=== PATIENT | female | born 1935 | race Caucasian/White ===

== ENCOUNTER 2016-12-25 17:49 | Inpatient (IN) | payer OTHER ==
[~2016-12-25] VITALS: Ht 157.5 cm; Wt 83.5 kg
--- NOTE | ~2016-12-25 | H ---
[facility] [place] [address] HISTORY AND PHYSICAL Name: LISA MCKEON Room #: 312-P ADM IN M.R.#: [id number] Admission: 12/25/16 Attend Phys: Johana Faustin MD Discharge: Date of : 33 Report #: [id number] THIS REPORT FOR: //name// CC: Sue Faustin DICTATED BY: Belem GONSALVES ATTENDING PHYSICIAN: Johana Faustin M.D. PRIMARY CARE PHYSICIAN: Sue Navarro M.D. CHIEF COMPLAINT: Shortness of breath, dizziness and orthostasis. HISTORY OF PRESENT ILLNESS: The patient is an 81-year-old female who came into the ER with shortness of breath and dizziness that has started about 2 weeks ago. It is worse with any standing or movement. She is not dizzy when she is at rest. She says she has been feeling so poorly in the last week she really has not been getting out of bed much. She has been eating or drinking because her son has been helping her out at home in bringing her food. She denies any vertigo-like dizziness, but states she mostly just feels lightheaded every time she stands up. She saw her primary care physician in the office today, who has noted to have tachycardia, orthostatic hypotension and anemia. Apparently, this was new. She denies any black or bloody stools. Denies any recent nausea or vomiting, cough or congestion. She states despite not eating well, she has gained about 10 pounds, but denies any swelling. She was noted to be in atrial fibrillation in the ER. She denies any prior history of AFib. She does see Dr. Lindo with cardiology for her history of coronary artery disease. She has [address] She states that last week she was evaluated with a chest x-ray and an echocardiogram on December 22. That report was reviewed, as she had it with her in her own files. The echo showed an EF of 60% with moderate mitral regurgitation, moderate tricuspid regurgitation, mild increased right ventricular systolic pressure, mild aortic regurgitation and moderate pulmonary regurgitation. The diastolic function was unable to be evaluated. She has had a prior stress test in June of 2016, which showed a small area of non-transmural infarct in the distal anterior apical segment, with mild nely-infarction ischemia. She was given Lopressor in the ER for her heart rate of 110 and her heart rate continues to be in AFib, but it is now running at 80-90. PAST MEDICAL HISTORY: Chronic back pain, coronary artery disease, gallbladder cancer, hypertension, hypothyroidism and hyperlipidemia. PAST SURGICAL HISTORY: Coronary stent times 5, resection of a granuloma for TB, cholecystectomy, back surgery, bilateral total knee replacement and hysterectomy. [address] [address] HISTORY AND PHYSICAL Name: LISA MCKEON Room #: 312-P [facility] IN M.R.#: [id number] Admission: 12/25/16 Attend Phys: Johana Faustin MD Discharge: Date of : 33 Report #: [id number] ALLERGIES: DYE, causes itching and rash. HOME MEDICATIONS: Aspirin 81 mg at bedtime, Neurontin 200 mg b.i.d., simvastatin 20 mg at bedtime, Effient 10 mg at bedtime, levothyroxine 88 mcg daily, Percocet 10/325 one tab b.i.d., Prozac 10 mg daily, metoprolol 50 mg daily, omeprazole 20 mg at bedtime, Dulcolax 10 mg p.o. at bedtime, MiraLax 17 grams at bedtime, albuterol inhaler p.r.n., amlodipine 2.5 mg daily and Aleve PM at bedtime. SOCIAL HISTORY: The patient is a never smoker. Denies any alcohol or drug use. She normally ambulates independently and is very active and gets out and visits with friends often. She drinks to half cup of coffee per day. FAMILY HISTORY: Her mother had pancreatic cancer. Her father from an [place] at the age of 70. REVIEW OF SYSTEMS: Twelve-point review of systems was reviewed with the patient and otherwise negative, unless stated in the HPI. PHYSICAL EXAMINATION: GENERAL: The patient is an alert female, in no acute distress. VITAL SIGNS: Temperature is 36.9, heart rate 95, respirations 16, blood pressure is 120/78 and oxygen 98% on room air. HEENT: PERRLA. Sclerae are nonicteric. Oral mucosa is pink and moist. NECK: Supple. No JVD noted. CARDIAC: Heart tones are irregular, but no murmurs, rubs or gallops. RESPIRATORY: Breath sounds are clear bilaterally. She is diminished in the left lower lobe. Breathing is nonlabored. ABDOMEN: Soft, round, nontender and nondistended, with positive bowel sounds. VASCULAR: Trace bilateral lower extremity edema. Pedal pulses are 2+. NEUROLOGIC: The patient is alert and oriented times 3. Speech is clear. She is answering questions appropriately and following commands. No focal neuro deficits noted. LABS AND DIAGNOSTICS: WBC is 12.3, hemoglobin 9.1 and platelets 301,000. Sodium 139, potassium 3.3, BUN 29, creatinine 14 and glucose 111. INR is 1.1. Troponins negative. EKG shows an atrial fibrillation, rate of 107. Chest x-ray showed a small left pleural effusion with minor basilar atelectasis versus infiltrates. ASSESSMENT AND PLAN: 1. New-onset atrial fibrillation with rapid ventricular response. This is likely why she has been appearing so poorly lately. She was given Lopressor in the ER and now is more rate controlled. We will continue with metoprolol b.i.d. Cardiology is consulted. Echo was requested per cardiology, but she just had one done last week and that was reviewed. Her EF is normal, but they were [facility] [address] [place] [address] HISTORY AND PHYSICAL Name: LISA MCKEON Room #: 312-P ADM IN [facility].#: [id number] Admission: 12/25/16 Attend Phys: Johana Faustin MD Discharge: Date of : 33 Report #: [id number] unable to evaluate for diastolic dysfunction. She is not on any anticoagulation, but was given a dose of therapeutic Lovenox in the ER. We will check TSH level. Continue to monitor on telemetry. 2. Dyspnea, likely due to atrial fibrillation and anemia. We will continue with breathing treatments p.r.n. She does have possible underlying pneumonia as well with small pleural effusion. So, we will continue antibiotics that were started in the ER. 3. Mild acute kidney injury. We will give gentle fluids. 4. Possible pneumonia. The patient is afebrile, but does have mild leukocytosis. We will continue antibiotics. 5. Hypothyroidism. Check TSH level, continue Synthroid. 6. Hypokalemia. This is being replaced. Repeat labs. 7. History of coronary artery disease with prior stents. Troponin is negative and she is on Effient daily. 8. Urinary tract infection. Continue with Rocephin. Follow urine culture. 9. Anemia. Last known hemoglobin was 12.0 in March 2016. We will check an iron level and hemoccult stools. 10. Deep vein thrombosis prophylaxis. Start Lovenox. We will continue to follow the patient closely throughout the hospitalization and make changes based on clinical status. By: 0837 1030 Johana Faustin MD /nt
--- NOTE | ~2016-12-25 | EKG ---
[address] [address] ELECTROCARDIOGRAM REPORT Name: LINDALISA Room #: 312-P ADM IN M.R.#: [id number] Admission: 12/25/16 Attend Phys: Johana Faustin MD Discharge: Date of : 33 Report #: [id number] THIS REPORT FOR: //name// [facility] ED Test Date: 2016-12-25 Test Time: 18:13:55 Pat Name: LISA MCKEON Department: Room: [facility] Gender: F Manager Rail: ALISSON : 1935 Requested By: Sujata Rivero Order Number: [id number] MD: Zeferino Neri Measurements Intervals [place] Rate: 107 P: NC: QRS: -7 QRSD: 96 T: 59 QT: 354 QTc: 473 Interpretive Statements Atrial fibrillation Low voltage, precordial leads Electronically Signed On 12-29-2016 12:41:50 CDT by Zeferino Neri [email or web address] <ELECTRONICALLY SIGNED> By: Zeferino Neri MD 12/29/16 1241 1813 1813 Zeferino Neri MD /MARILUZ
[~2016-12-25 17:49] MED LIST: ALEVE PM CAPLE1 EACH; ALLEGRA ALLERGY60 MG PO; ASPIRIN EC81 M1 PO; BENADRYL25 MG PO; DULCOLAX5 MG PO; EFFIENT10 MG PO; ESTRACE1 MG PO; GABAPENTIN100 MG PO; HYDROCHLOROTH12.5 M1 PO; KLOR-CON 1010 MEQ PO; LEVOTHYROXIN0.088 MG PO; MIRALAX17 GM PO; NITROSTAT0.4 MG SL; NORVASC2.5 MG PO; PERCOCET 10-321 EACH PO; PREDNISONE 20 M20 M1 PO; PRILOSEC20 MG PO; PROAIR HFA8.5 GM INH; PROZAC10 MG PO; REGLAN 10 MG TA10 MG PO; ROXICET 5-3251 EACH PO; SIMVASTATIN20 MG PO; SYNTHROID100 MCG PO; TOPROL XL50 MG PO; ZESTORETIC 20-1 EAC2 PO
[2016-12-25 17:51] VITALS: BP 120/78
[2016-12-25 18:23] LABS: ABSOLUTE NEUTROPHILS 9.7 thou/uL (1.4-8.2); BASOPHILS 0.3 % (0.0-2.0); EOSINOPHILS 0.1 % (0.0-3.0); HEMATOCRIT 29.5 % (37.0-47.0); HEMOGLOBIN 9.1 gm/dL (12.0-15.0); LYMPHOCYTES 9.6 % (24.0-44.0); MCH 24.1 pg (26.0-34.0); MCHC 30.8 g/dL (28.0-37.0); MCV 78.3 fL (80.0-100.0); MONOCYTES 11.5 % (1.0-8.0); PLATELET COUNT 301 thou/uL (150-400); POLYS 78.5 % (36.0-66.0); RBC 3.77 mil/uL (4.20-5.00); RDW 18.4 % (10.5-14.5); WBC 12.3 thou/uL (4.0-11.0)
[2016-12-25 18:24] LABS: MANUAL DIFF NO
[2016-12-25 18:31] LABS: ANION GAP 13 mmol/L (7-16); BUN 29 mg/dL (7-18); CALCIUM 8.9 mg/dL (8.5-10.1); CHLORIDE 103 mmol/L (98-107); CO2 23 mmol/L (21-32); CREATININE 1.4 mg/dL (0.6-1.3); GLUCOSE 111 mg/dL (70-99); POTASSIUM 3.3 mmol/L (3.5-5.1); SODIUM 139 mmol/L (136-145)
[2016-12-25 18:37] LABS: APTT 26.8 Seconds (24.5-32.8); INR 1.1; PROTIME 11.6 Seconds (9.3-11.4)
[2016-12-25 18:39] LABS: TROPONIN-I < 0.04 ng/mL (<0.04-0.07)
[2016-12-25 20:37] VITALS: BP 156/92
[2016-12-25 21:16] VITALS: BP 123/77
[2016-12-25] MEDS ORDERED: XANAX 0.25 MG0.25 MG PO (21:42)
[2016-12-25] MEDS ORDERED: EFFIENT10 MG PO (21:43)
[2016-12-25 22:24] LABS: URINE BILIRUBIN NEGATIVE (Negative); URINE BLOOD 2+ (Negative); URINE COLOR YELLOW; URINE GLUCOSE-RANDOM* NEGATIVE (Negative); URINE KETONES NEGATIVE (Negative); URINE NITRITE POSITIVE (Negative); URINE PROTEIN (DIPSTICK) 2+ (Negative); URINE SPECIFIC GRAVITY 1.015 (1.003-1.035)
[2016-12-25 22:31] LABS: CASTS None Seen /LPF (None Seen); CRYSTALS None Seen /LPF (None Seen); SQUAMOUS 0-3 Few /LPF (0-3); URINE RBC 3-10 Few /HPF (0-2); URINE WBC >25 Many /HPF (0-5)
[2016-12-25 22:33] LABS: MAGNESIUM 1.9 mg/dL (1.8-2.4)
[2016-12-26 00:03] VITALS: BP 137/78
[2016-12-26 00:17] LABS: % SATURATION 3 % (20-39); IRON 10 ug/dL (50-170); TIBC 335 ug/dL (250-450); UIBC 325 ug/dL
[2016-12-26 03:57] VITALS: BP 102/63
[2016-12-26 05:46] LABS: CALCIUM 8.3 mg/dL (8.5-10.1); CREATININE 1.2 mg/dL (0.6-1.3); POTASSIUM 3.6 mmol/L (3.5-5.1)
[2016-12-26 08:42] VITALS: BP 139/75
[2016-12-26 12:23] VITALS: BP 125/79
[2016-12-26 15:54] VITALS: BP 131/74
[2016-12-26 20:00] VITALS: BP 124/81
[2016-12-27] VITALS (8 sets, daily range): BP systolic 100–155; BP diastolic 56–96
[2016-12-27 06:36] LABS: HEMATOCRIT 26.2 % (37.0-47.0); HEMOGLOBIN 8.2 gm/dL (12.0-15.0); MCH 24.1 pg (26.0-34.0); MCHC 31.1 g/dL (28.0-37.0); MCV 77.6 fL (80.0-100.0); RBC 3.38 mil/uL (4.20-5.00); RDW 18.2 % (10.5-14.5); WBC 8.5 thou/uL (4.0-11.0)
[2016-12-27 06:49] LABS: CALCIUM 8.5 mg/dL (8.5-10.1)
[2016-12-27 07:02] LABS: ALBUMIN 2.3 g/dL (3.4-5.0); DIRECT BILIRUBIN 0.2 mg/dL (<0.1-0.3); TOTAL BILIRUBIN 0.3 mg/dL (<0.1-1.0); TOTAL PROTEIN 5.4 g/dL (6.4-8.2)
[2016-12-27 07:29] LABS: FOLIC ACID 16.2 ng/mL (8.6-58.9)
[2016-12-28 03:18] VITALS: BP 111/71
[2016-12-28 05:34] LABS: HEMATOCRIT 28.2 % (37.0-47.0)
[2016-12-28 07:48] VITALS: BP 122/76
[2016-12-28 10:09] VITALS: BP 106/63; BP 119/58; BP 119/69
[2016-12-28 11:05] VITALS: BP 110/65
[2016-12-28] MEDS ORDERED: ELIQUIS5 MG PO (11:14)
[2016-12-28] MEDS ORDERED: PROTONIX40 M1 PO (11:14)
[2016-12-28] MEDS ORDERED: METOPROLOL SUCC50 MG PO (11:14)
[2016-12-28] MEDS ORDERED: CIPRO250 M1 PO (11:14)
[2016-12-28] MEDS ORDERED: METOPROLOL SUCC25 M1 PO (11:14)
[2016-12-28 15:11] VITALS: BP 119/77
[2016-12-28 19:08] VITALS: BP 130/75
[2016-12-29 03:45] VITALS: BP 127/74
[2016-12-29 08:25] VITALS: BP 138/90
[2016-12-29 12:58] VITALS: BP 115/68
[2016-12-29] MEDS ORDERED: XANAX 0.25 MG0.25 MG PO (16:02)
[2016-12-29] MEDS ORDERED: PERCOCET 10-321 EACH PO (16:02)
[2016-12-29 17:23] VITALS: BP 137/80
== END 2016-12-29 17:40 | DRG 309 ==
LOC: ER 17:49 → EROBS 18:56 → 3N 18:56
PROVIDERS: Emergency Medicine; Internal Medicine Gastroenterology; Nurse Practitioner Acute Care; Nurse Practitioner Adult Health; Nurse Practitioner Gerontology
DX: I48.91 Unspecified atrial fibrillation (principal); N17.9 Acute kidney failure, unspecified; N39.0 Urinary tract infection, site not specified; I25.10 Atherosclerotic heart disease of native coronary artery without angina pectoris; E03.9 Hypothyroidism, unspecified; E87.6 Hypokalemia; N20.0 Calculus of kidney; I50.9 Heart failure, unspecified; I11.0 Hypertensive heart disease with heart failure; S67.21XA Crushing injury of right hand, initial encounter; D50.9 Iron deficiency anemia, unspecified; G31.89 Other specified degenerative diseases of nervous system; Z96.653 Presence of artificial knee joint, bilateral; I95.1 Orthostatic hypotension; G89.29 Other chronic pain; M54.9 Dorsalgia, unspecified; Z95.5 Presence of coronary angioplasty implant and graft; Z80.0 Family history of malignant neoplasm of digestive organs; Z90.710 Acquired absence of both cervix and uterus; Z91.041 Radiographic dye allergy status; Z85.89 Personal history of malignant neoplasm of other organs and systems; Z82.49 Family history of ischemic heart disease and other diseases of the circulatory system; Z79.82 Long term (current) use of aspirin; Z79.899 Other long term (current) drug therapy
CPT/HCPCS: 10096

== ENCOUNTER 2017-01-30 12:03 | Observation (INO) | payer OTHER ==
--- NOTE | ~2017-01-30 | H ---
[facility] [address] [address] HISTORY AND PHYSICAL Name: LISA MCKEON Room #: 211-P [facility] IN M.R.#: [id number] Admission: 01/30/17 Attend Phys: Tuan Lindo Discharge: 01/31/17 Date of : 33 Report #: [id number] THIS REPORT FOR: //name// For History and Physical, please see office documentation/handwritten note in the patient's medical record. <ELECTRONICALLY SIGNED> By: Tuan Lindo MD 02/02/17 1343 1220 Tuan Lindo MD /
[~2017-01-30 12:03] MED LIST changes: +CIPRO250 M1 PO; +ELIQUIS5 MG PO; +METOPROLOL SUCC25 M1 PO; +METOPROLOL SUCC50 MG PO; +PROTONIX40 M1 PO; +XANAX 0.25 MG0.25 MG PO
[2017-01-30] MEDS ORDERED: XANAX 0.25 MG0.25 MG (13:18)
[2017-01-30 15:52] VITALS: BP 130/83
[2017-01-30 20:20] VITALS: BP 113/69
[2017-01-31] VITALS (8 sets, daily range): BP systolic 99–125; BP diastolic 53–74
[2017-01-31] MEDS ORDERED: DIPHENHIST25 M1 PO (18:28)
[2017-01-31] MEDS ORDERED: ACETAMINOPHEN325 M1 PO (18:28)
[2017-01-31] MEDS ORDERED: METOPROLOL SUCC50 MG PO (18:29)
[2017-01-31] MEDS ORDERED: ELIQUIS5 MG PO (18:29)
[2017-01-31] MEDS ORDERED: PACERONE 200 M200 M1 PO ×3 (18:43→18:46)
== END 2017-01-31 19:32 | disposition home or self-care (01) ==
LOC: 2N 12:03
PROC: 5A2204Z Restoration of Cardiac Rhythm, Single (ICD-10-PCS; principal; 2017-01-30)
DX: I48.91 Unspecified atrial fibrillation (principal); I10 Essential (primary) hypertension; E78.00 Pure hypercholesterolemia, unspecified; E03.9 Hypothyroidism, unspecified; I25.10 Atherosclerotic heart disease of native coronary artery without angina pectoris; E78.5 Hyperlipidemia, unspecified; M47.9 Spondylosis, unspecified; Z96.653 Presence of artificial knee joint, bilateral; Z90.710 Acquired absence of both cervix and uterus; Z95.5 Presence of coronary angioplasty implant and graft
CPT/HCPCS: 10081

== ENCOUNTER 2018-10-13 15:07 | Inpatient (IN) | payer OTHER ==
[~2018-10-13] VITALS: Ht 152.4 cm; Wt 78.7 kg
--- NOTE | ~2018-10-13 | H ---
[facility] [place] [address] HISTORY AND PHYSICAL Name: LISA MCKEON Room #: 170-1 ADM IN M.R.#: [id number] Admission: 10/13/18 Attend Phys: Ryan Rogers MD Discharge: Date of : 33 Report #: [id number] THIS REPORT FOR: //name// CC: Ryan Navarro DATE OF SERVICE: 10/13/2018 REASON FOR PRESENTATION: Dizziness. HISTORY OF PRESENT ILLNESS: An 82-year-old with known past medical history of atrial fibrillation, coronary artery disease, post stent, hypertension, hypothyroidism. The patient lives by herself. Her sons and daughter check on her. One of her sons was visiting with her today to try to take her to a salon for a haircut. The patient collapsed all of a sudden between his hands. She denies any chest pain. She did have some episode of dizziness in the last few days. She also reported some shortness of breath. No fever or chills. No recent URI. She had some constipation, but no nausea or vomiting. She denies any weakness in any part of her body. No facial numbness. No tingling. No hematochezia or melena. She denies any urinary symptoms. She has been taking amiodarone and metoprolol. When the patient presented to the Emergency Room, she was hypotensive and in extreme bradycardia. She denies complete syncope. No head trauma. PAST MEDICAL HISTORY: Extensive and includes the followin. AFib. 2. Hypertension. 3. Hypothyroidism. 4. Anemia. 5. Coronary artery disease. 6. Nephrolithiasis. 7. Hiatal hernia. 8. Colon polyps. 9. Mild aortic and tricuspid regurgitation. 10. History of gallbladder cancer, post cholecystectomy. 11. Axillary and mediastinal lymphadenopathy. 12. Multiple coronary artery stents. 13. Remote history of granuloma resection. 14. Back surgery. 15. Hysterectomy. 16. Fifth finger surgery on the right hand. 17. Bilateral knee replacements. FAMILY HISTORY: Her father had ND. SOCIAL HISTORY: She lives by herself. No drug or alcohol abuse. [facility] [address] [place] [address] HISTORY AND PHYSICAL Name: LISA MCKEON Shelly Room #: 170-1 [facility] IN [facility].#: [id number] Admission: 10/13/18 Attend Phys: Ryan Rogers MD Discharge: Date of : 33 Report #: [id number] MEDICATIONS: 1. Eliquis. 2. Amiodarone. 3. Metoprolol. 4. Amlodipine. 5. Gabapentin. 6. Levothyroxine. 7. Simvastatin. REVIEW OF SYSTEMS: GENERAL: Significant for weakness. Dizziness present along with lightheadedness. CARDIOVASCULAR: Shortness of breath. PULMONARY: No cough or hemoptysis. GASTROINTESTINAL: Constipation due to narcotics. MUSCULOSKELETAL: Back pain requiring injections. HEMATOLOGICAL: She has been told that she looks pale. She also reported dizziness. NEUROLOGICAL: As per the history of present illness. PHYSICAL EXAMINATION: GENERAL: Pleasant, alert, oriented. VITAL SIGNS: Temperature 36.9, pulse rate 48. HEAD AND NECK: No jugular venous distention. CHEST: Decreased air entry bilaterally. CARDIOVASCULAR: No rub detected, irregular. ABDOMEN: Soft, nontender with no hepatosplenomegaly. EXTREMITIES: Lower extremities, no edema. NEUROLOGICAL: She is alert, oriented. No cranial nerve deficits. SKIN: No rashes or ulcerations. LABORATORY DATA: Reviewed. Hemoglobin is 9.5, white blood cell count 8.9. Chemistry revealed sodium of 141, a creatinine of 1.5 and AST of 51. UA with +1 protein, +3 blood, positive nitrite with white blood cell and red blood cells present. ASSESSMENT, IMPRESSION AND PLAN: 1. Symptomatic bradycardia. 2. Hypertension. 3. Anemia. 4. Chronic kidney disease. 5. Atrial fibrillation. 6. Elevated liver function test. 7. Coronary artery disease. 8. Degenerative joint disease. [address] [address] HISTORY AND PHYSICAL Name: LISA MCKEON Room #: 170-1 ADM IN [facility].#: [id number] Admission: 10/13/18 Attend Phys: Ryan Rogers MD Discharge: Date of : 33 Report #: [id number] 9. History of gallbladder cancer, post cholecystectomy. 10. The patient's symptoms seem to be all related to her bradycardia and hypotension related to amiodarone and beta vickie intake. We will hold both. 11. Given her anemia, I will hold her anticoagulant. 12. Send appropriate anemia workup. 13. Obtain a chest x-ray. 14. Continue with the IV fluid. 15. Obtain a urine culture and initiate on antibiotic. 16. No blood thinners for now. 17. Gastrointestinal prophylaxis. 18. Cardiac consultation. 19. Hold her blood pressure medications given her hypotension. 20. Check thyroid studies. By: 1748 1814 Ryan Rogers MD /nt
[~2018-10-13 15:07] MED LIST changes: +ACETAMINOPHEN325 M1 PO; +DIPHENHIST25 M1 PO; +PACERONE 200 M200 M1 PO; +XANAX 0.25 MG0.25 MG
[2018-10-13 15:08] VITALS: BP 116/46
[2018-10-13 16:00] LABS: ABSOLUTE NEUTROPHILS 6.7 thou/uL (1.4-8.2); BASOPHILS 0.8 % (0.0-2.0); EOSINOPHILS 0.6 % (0.0-3.0); HEMATOCRIT 29.5 % (37.0-47.0); HEMOGLOBIN 9.5 gm/dL (12.0-15.0); LYMPHOCYTES 14.3 % (24.0-44.0); MCH 27.7 pg (26.0-34.0); MCHC 32.2 g/dL (28.0-37.0); MCV 86.1 fL (80.0-100.0); MONOCYTES 8.7 % (1.0-8.0); PLATELET COUNT 315 thou/uL (150-400); POLYS 75.6 % (36.0-66.0); RBC 3.43 mil/uL (4.20-5.00); RDW 18.6 % (10.5-14.5); WBC 8.9 thou/uL (4.0-11.0)
[2018-10-13] MEDS ORDERED: NORVASC5 MG PO (16:15)
[2018-10-13 16:17] LABS: ANION GAP 10 mmol/L (7-16); BUN 17 mg/dL (7-18); CALCIUM 8.5 mg/dL (8.5-10.1); CHLORIDE 104 mmol/L (98-107); CO2 27 mmol/L (21-32); CREATININE 1.5 mg/dL (0.6-1.0); GLUCOSE 104 mg/dL (74-106); POTASSIUM 3.5 mmol/L (3.5-5.1); SODIUM 141 mmol/L (136-145)
[2018-10-13 16:22] LABS: SGOT 51 U/L (15-37); SGPT 23 U/L (30-65); TOTAL BILIRUBIN 0.5 mg/dL (<0.1-1.0); TOTAL PROTEIN 6.9 g/dL (6.4-8.2); TROPONIN-I <0.06 ng/mL (<0.06)
[2018-10-13 16:53] LABS: HYPOCHROMASIA 1+; MACROCYTES 1+; MICROCYTES 2+
[2018-10-13 16:57] LABS: URINE BILIRUBIN NEGATIVE (Negative); URINE BLOOD 3+ (Negative); URINE CLARITY CLEAR; URINE COLOR YELLOW; URINE GLUCOSE-RANDOM* NEGATIVE (Negative); URINE KETONES NEGATIVE (Negative); URINE LEUKOCYTES NEGATIVE (Negative); URINE NITRITE POSITIVE (Negative); URINE PROTEIN (DIPSTICK) 1+ (Negative); URINE SPECIFIC GRAVITY 1.025 (1.005-1.035); URINE UROBILINOGEN 0.2 E.U./dl (0.2-1.0)
[2018-10-13 17:05] LABS: SQUAMOUS 0-3 Few /LPF (0-3); URINE WBC 6-15 Few /HPF (0-5)
[2018-10-13 17:06] LABS: BACTERIA >30 Many /HPF (None Seen); CRYSTALS None Seen /LPF (None Seen); HYALINE CASTS 0-3 Few /LPF (None Seen); MUCUS 0-3 Light strn/LPF (None Seen); URINE RBC >20 Many /HPF (0-2)
[2018-10-13 17:35] VITALS: BP 144/54
[2018-10-13 21:14] VITALS: BP 147/77
[2018-10-13 21:40] VITALS: BP 178/70
--- NOTE | 2018-10-13 22:12 | EKG ---
[place] [address] [facility] [place] [address] ELECTROCARDIOGRAM REPORT Name: LINDALISA Room #: 461-P ADM IN M.R.#: [id number] Admission: 10/13/18 Attend Phys: Ryan Rogers MD Discharge: Date of : 33 Report #: [id number] THIS REPORT FOR: //name// [facility] ED Test Date: 2018-10-13 Test Time: 15:48:04 Pat Name: LISA MCKEON Department: Room: 461 Gender: F Global Creative Chairman: as : 1935 Requested By: Chinyere Newby Order Number: [id number] MD: Zeferino Neri Measurements Intervals [place] Rate: 50 P: [place]: QRS: -77 QRSD: 108 T: 44 QT: 506 QTc: 462 Interpretive Statements Sinus bradycardia LAD, consider left anterior fascicular block Low voltage, extremity and precordial leads Electronically Signed On 10-13-2018 22:12:12 WILDLAND FIREFIGHTER by Zeferino Neri [email or web address] <ELECTRONICALLY SIGNED> By: Zeferino Neri MD 10/13/18 2212 D: 01/1547 154 Zeferino Neri MD /MARILUZ
[2018-10-14 04:36] VITALS: BP 131/61
[2018-10-14 05:50] LABS: HEMATOCRIT 26.4 % (37.0-47.0); HEMOGLOBIN 8.4 gm/dL (12.0-15.0); MCH 26.9 pg (26.0-34.0); MCHC 31.8 g/dL (28.0-37.0); MCV 84.6 fL (80.0-100.0); RBC 3.12 mil/uL (4.20-5.00); RDW 18.5 % (10.5-14.5); WBC 7.3 thou/uL (4.0-11.0)
[2018-10-14 06:19] LABS: ALBUMIN 2.6 g/dL (3.4-5.0); CALCIUM 8.2 mg/dL (8.5-10.1); CREATININE 1.2 mg/dL (0.6-1.0); POTASSIUM 3.3 mmol/L (3.5-5.1); TOTAL BILIRUBIN 0.3 mg/dL (<0.1-1.0); TOTAL PROTEIN 6.2 g/dL (6.4-8.2)
[2018-10-14 06:23] LABS: % SATURATION 5 % (20-39); IRON 15 ug/dL (50-170); TIBC 321 ug/dL (250-450)
[2018-10-14 06:24] LABS: TSH 4.469 uIU/mL (0.358-3.740)
[2018-10-14 08:00] VITALS: BP 130/56
--- NOTE | 2018-10-14 08:40 | EKG ---
[address] [place] [address] ELECTROCARDIOGRAM REPORT Name: LISA MCKEON Room #: 461-P ADM IN M.R.#: [id number] Admission: 10/13/18 Attend Phys: Ryan Rogers MD Discharge: Date of : 33 Report #: [id number] THIS REPORT FOR: //name// [facility] Test Date: 2018-10-14 Test Time: 03:44:46 Pat Name: LISA MCKEON Department: Room: 461 Gender: F Enrollment Representative: [id number] : 1935 Requested By: Chinyere Newby Order Number: [id number] MD: Zeferino Neri Measurements Intervals [place] Rate: 54 P: SD: QRS: -25 QRSD: 105 T: 46 QT: 487 QTc: 462 Interpretive Statements Normal sinus rhythm Borderline left axis deviation Low voltage, extremity leads Compared to ECG 10/13/2018 15:48:04 Electronically Signed On 10-14-2018 8:40:14 COACH WIRER by Zeferino Neri [email or web address] <ELECTRONICALLY SIGNED> By: Zeferino Neri MD 10/14/18 0840 0344 0344 Zeferino Neri MD /MARILUZ
[2018-10-14 10:37] LABS: ABSOLUTE RETIC COUNT 0.0503 10^6/uL; OBSERVED RETIC COUNT 1.57 % (0.6-2.6)
[2018-10-14 11:09] LABS: IgA 427 mg/dL (64-422); IgG 747 mg/dL (700-1600); IgM 50 mg/dL (26-217)
--- NOTE | 2018-10-14 13:01 | 2DMMODE ---
[facility] [address] [place] [address] 2 D/M-MODE ECHOCARDIOGRAM Name: LISA MCKEON Room #: 461-P ADM IN M.R.#: [id number] Admission: 10/13/18 Attend Phys: Ryan Rogers, Discharge: Date of : 33 Date of Service: 10/14/18 [facility] Report #: [id number] THIS REPORT FOR: //name// APPROVED REPORT Study performed: 10/14/2018 11:13:04 EXAM: Comprehensive 2D, Doppler, and color-flow Echocardiogram Patient Location: Bedside Room #: 461 Status: routine BSA: 1.76 HR: 56 bpm BP: 131/61 mmHg Rhythm: NSR Other Information Study Quality: Adequate Indications Atrial Fibrillation Dyspnea 2D Dimensions RVDd: 36.76 mm IVSd: 11.76 (7-11mm) LVOT Diam: 18.76 (18-24mm) LVDd: 48.56 mm PWd: 9.53 (7-11mm) Ascending Ao: 32.64 (22-36mm) LVDs: 32.76 (25-40mm) Aortic Root: 34.11 mm IVC: 24.00 mm Volumes Left Atrial Volume (Systole) Single Plane 4CH: 37.12 mL Single Plane 2CH: 57.68 mL LA ESV Index: 29.25 mL/m2 Aortic Valve AoV Peak Aldo.: 1.77 m/s AO Peak Gr.: 12.59 mmHg LVOT Max P.33 mmHg LVOT Max V: 1.15 m/s KATELYNN Vmax: 1.80 cm2 Mitral Valve E/A Ratio: 2.0 MV Decel. Time: 185.84 ms [facility] [address] [place] [address] 2 D/M-MODE ECHOCARDIOGRAM Name: LISA MCKEON Room #: 461-P [facility] IN ..#: [id number] Admission: 10/13/18 Attend Phys: Ryan Rogers, Discharge: Date of : 33 Date of Service: 10/14/18 1300 Report #: [id number] E Max Aldo.: 1.15 m/s MV A Aldo.: 0.58 m/s MV Max Aldo.: 4.83 m/s MV Mean Aldo.: 4.07 m/s MV PHT: 53.89 ms IVRT: 87.66 ms Pulmonary Valve PV Peak Aldo.: 1.12 m/s PV Peak Gr.: 5.02 mmHg SC End Vmax: 1.38 m/s Tricuspid Valve TR Peak Aldo.: 3.76 m/s RAP Estimate: 15.00 mmHg TR Peak Gr.: 56.45 mmHg PA Pressure: 71.00 mmHg Left Ventricle The left ventricle is normal size. Mild concentric left ventricular hypertrophy. The left ventricular systolic function is normal. The left ventricular ejection fraction is within the normal range. LVEF is 55-60%. Moderate diastolic dysfunction is present (pseudonormal filling). Right Ventricle Right ventricle is mildly dilated. The right ventricular systolic function is normal. Atria Left atrium is mildly dilated. Right atrium is dilated. Aortic Valve Aortic valve is calcified. Mild aortic regurgitation. There is no aortic valvular stenosis. Mitral Valve The mitral valve is normal in structure. Mild mitral regurgitation. No evidence of mitral valve stenosis. Tricuspid Valve The tricuspid valve is normal in structure. Mild to moderate tricuspid regurgitation. Estimated PAP of 50 mmHg. Pulmonic Valve Pulmonic valve is not well visualized. Moderate pulmonic regurgitation. [facility] [address] [place] [address] 2 D/M-MODE ECHOCARDIOGRAM Name: LISA MCKEON Shelly Room #: 461-P [facility] IN .R.#: [id number] Admission: 10/13/18 Attend Phys: Ryan Rogers, Discharge: Date of : 33 Date of Service: 10/14/18 1300 Report #: [id number] Great Vessels The aortic root is normal in size. The ascending aorta is normal in size. IVC is dilated and collapses <50% with inspiration. <Conclusion> The left ventricle is normal size. Mild concentric left ventricular hypertrophy. The left ventricular systolic function is normal. Moderate diastolic dysfunction is present (pseudonormal filling). Right ventricle is mildly dilated. Left atrium is mildly dilated. Aortic valve is calcified. Mild aortic regurgitation. Mild mitral regurgitation. Mild to moderate tricuspid regurgitation. Estimated PAP of 50 mmHg. <ELECTRONICALLY SIGNED> By: Hardik Cantu MD 10/14/18 1300 1300 1300 Hardik Cantu MD /INF
--- NOTE | 2018-10-14 13:37 | EKG ---
[address] [employer] [place] [address] ELECTROCARDIOGRAM REPORT Name: LISA MCKEON Room #: 461-P ADM IN M.R.#: [id number] Admission: 10/13/18 Attend Phys: Ryan Rogers MD Discharge: Date of : 33 Report #: [id number] THIS REPORT FOR: //name// [facility] Test Date: 2018-10-14 Test Time: 08:55:39 Pat Name: LISA MCKEON Department: Room: 461 P Gender: F Evp Sales: BS : 1935 Requested By: Yudith Davalos Order Number: [id number] MD: Zeferino Neri Measurements Intervals [place] Rate: 53 P: [place]: QRS: -14 QRSD: 106 T: 68 QT: 475 QTc: 446 Interpretive Statements Sinus rhythm, small p waves noted V3 Borderline low voltage, extremity leads Probable anteroseptal infarct, old Compared to ECG 10/14/2018 03:44:46 Myocardial infarct finding now present Electronically Signed On 10-14-2018 13:37:47 MOLD COOLER by Zeferino Neri [email or web address] <ELECTRONICALLY SIGNED> By: Zeferino Neri MD 10/14/18 1337 0855 0855 Zeferino Neri MD /EPI
[2018-10-14 13:59] VITALS: BP 122/51
--- NOTE | 2018-10-14 15:15 | NUR ---
ASSESSMENT: CM REVIEWED CHART AND MET WITH PATIENT AT THE BEDSIDE. PT WAS ADMITTED WITH UTI/WEAKNESS. PT REPORTS SHE LIVES IN A HOUSE AND HER SON IS CURRENTLY STAYING WITH HER WHO IS GOING THROUGH A SPLIT WITH HIS . PT REPORTS SHE HAS A COUPLE STEPS TO ENTER FROM THE FRONT DOOR. PT REPORTS SHE LIVES IN A SPLIT LEVEL HOME AND HAS ABOUT 7 STEPS WITH HANDRAILS TO MAIN FLOOR AND ANOTHER 7 STEPS WITH HANDRAILS TO THE BEDROOM. PT REPORTS HAVING A WALKER AT HOME BUT STATES SHE NORMALLY AMBULATES INDEPENDENTLY. PT REPORTS HAVING A SHOWER CHAIR. PT STATES SHE HAS BEEN TO [facility] IN THE PAST AND REPORTS SHE HAS NOT HAD HH THAT SHE IS AWARE OF. PT/OT TO SEE PATIENT AND CURRENTLY EVALS ARE PENDING. PT IS OPEN TO SNF IF NEEDED AND REPORTS [facility] DID A GOOD JOB BUT SHE WANTED TO LOOK AT THE SNF LIST. CM PROVIDED PATIENT WITH SNF LIST. CM CONTACTED PATIENTS SON LARRY TO DISCUSS AND ALSO LEFT A VM FROM DANTE HER DAUGHTER/DPOA. PT VOICED CONCERNS ABOUT BEING ABLE TO SWALLOW HER LUNCH AND CM NOTIFIED BEDSIDE RN. CM WILL CONTINUE TO FOLLOW TO ASSIST NEEDED.
[2018-10-14 19:25] VITALS: BP 153/63
[2018-10-15 03:47] VITALS: BP 169/80
[2018-10-15 07:25] VITALS: BP 135/49
--- NOTE | 2018-10-15 09:02 | NUR ---
PROGRESS PT A/O X4 UP AD DEVI, TELE INTACT READING SR, PT REQUESTED PAIN MEDICATION FOR LOWER BACK PAIN AND XANAX FOR ANXIETY SLEPT THROUGHOUT THE NIGHT. VOIDING QS IV TO LAC FLUSHES WITHOUT DIFFICULTY CONTINUE TO MONITOR
--- NOTE | 2018-10-15 14:14 | NUR ---
CARE TEAM INDICATED THAT PT IS MEDICALLY STABLE TO DISCHARGE HOME THIS DAY. PT AND OT INDICATED THAT PT IS SAFE TO RETURN HOME WITH HOME HEALTH SERVICES. CM MET WITH PT AT BEDSIDE THIS DAY AND INDICATED THAT ABOVE. PT INDICATED SHE DIDN'T WANT HOME HEALTH SERVICES. CM EXPLAINED BENEFIT AND PER INSISTED SHE DIDN'T WANT THEM. CM NOTIFIED PHYSICIAN OF PT'S PREFERENCE AND PT IS TO DISHCARGE HOME TO SELF CARE. CM CALLED PT'S DTR DANTE AND HER SON LARRY AND LEFT VOICEMAILS. CM TO ASSIST NEEDED WITH DC PLANNING.
--- NOTE | 2018-10-15 15:01 | NUR ---
CM SPOKE WIHT PT'S SON AND HE IS AWARE AND AGREEABLE WITH PT DISCHARGING HOME THIS DAY. CM INDICATED THAT CARE TEAM HAD RECOMMENDED HH SERVICES BUT THAT PT REFUSED HE IS AWARE. PT'S SON OR DTR WILL PICK PT UP THIS EVENING. GREGORY WAS AVAIABLE AROUND 1830. NO OTHER CM INTERVENTION INDICATED AT THIS TIME. CASE CLOSED.
[2018-10-15 15:37] VITALS: BP 135/49
--- NOTE | 2018-10-15 18:31 | NUR ---
ASSUMED CARE AT 0700. AXOX4. SEEN BY [facility] AT BEDSIDE. PT REFUSED TO GO TO
--- NOTE | 2018-10-15 19:28 | NUR ---
ASSUMED CARE AT 0700. AXOX4. SEEN BY CARDIOLOGY AND ATTENDING PHYSICIAN. RECEIVED AN ORDER TO D/C HOME. AT BEDSIDE WITH , PT REFUSED HOME HEALTH OR ACUTE REHAB. PER PT AND ATTENDING PHYSICIAN, SHE IS CAPABLE OF RETURNING HOME. SON LARRY MCKEON HERE TO P/U PT. HOME MEDS RETURNED TO PT AND LARRY AND I WENT OVER THE D/C ORDERS AND MEDS TOGEHTER. RELAYED INFORMATION THAT SHE HAS TO BOOK AN APPT WITH WITHIN 10 DAYS. PT AND THE SON VERBALIZES UNDERSTANDING. BELINGING WERE SENT WITH THE PT AND IV AND TELE REMOVED. PT LEFT IN STABLE CONDITION.
[2018-10-16 07:13] LABS: KAPPA FREE LIGHT CHAINS 48.8 mg/L (3.3-19.4); KAPPA/LAMBDA RATIO 1.36 (0.26-1.65); LAMBDA FREE LIGHT CHAINS 35.8 mg/L (5.7-26.3)
== END 2018-10-15 19:32 | disposition home or self-care (01) | DRG 682 ==
LOC: ER 15:07 → EROBS 17:18 → 4W 17:18 → ENTRNSPT 10-15 19:15 → 4W 10-15 19:32
PROVIDERS: Nurse Practitioner; Physician Assistant; ADMIT Hospitalist
DX: N17.9 Acute kidney failure, unspecified (principal); E43 Unspecified severe protein-calorie malnutrition; N39.0 Urinary tract infection, site not specified; I48.0 Paroxysmal atrial fibrillation; N18.9 Chronic kidney disease, unspecified; I12.9 Hypertensive chronic kidney disease with stage 1 through stage 4 chronic kidney disease, or unspecified chronic kidney disease; M19.90 Unspecified osteoarthritis, unspecified site; M54.9 Dorsalgia, unspecified; J44.9 Chronic obstructive pulmonary disease, unspecified; F32.9 Major depressive disorder, single episode, unspecified; F41.9 Anxiety disorder, unspecified; E86.0 Dehydration; Z96.653 Presence of artificial knee joint, bilateral; I25.10 Atherosclerotic heart disease of native coronary artery without angina pectoris; E78.5 Hyperlipidemia, unspecified; D64.9 Anemia, unspecified; E03.9 Hypothyroidism, unspecified; R59.1 Generalized enlarged lymph nodes; I95.2 Hypotension due to drugs; Z68.33 Body mass index [BMI] 33.0-33.9, adult; Z79.899 Other long term (current) drug therapy; Z88.8 Allergy status to other drugs, medicaments and biological substances; Z91.041 Radiographic dye allergy status; Z90.49 Acquired absence of other specified parts of digestive tract; Z95.5 Presence of coronary angioplasty implant and graft; Z79.1 Long term (current) use of non-steroidal anti-inflammatories (NSAID); Z82.49 Family history of ischemic heart disease and other diseases of the circulatory system; Z80.0 Family history of malignant neoplasm of digestive organs; Z87.891 Personal history of nicotine dependence; Z90.710 Acquired absence of both cervix and uterus
CPT/HCPCS: 10045

== ENCOUNTER 2019-02-01 20:53 | Emergency (ER) | payer OTHER ==
[~2019-02-01] VITALS: Ht 157.5 cm; Wt 74.8 kg
[~2019-02-01 20:53] MED LIST changes: +NORVASC5 MG PO
[2019-02-01] MEDS ORDERED: LASIX 20 MG TAB20 MG PO (21:08)
[2019-02-01] MEDS ORDERED: SYNTHROID125 MC1 PO (21:08)
[2019-02-01] MEDS ORDERED: IBUPROFEN 800800 M1 PO (21:09)
[2019-02-01 21:23] LABS: ABSOLUTE NEUTROPHILS 5.9 thou/uL (1.4-8.2); BASOPHILS 1.1 % (0.0-2.0); EOSINOPHILS 1.5 % (0.0-3.0); HEMATOCRIT 32.2 % (37.0-47.0); HEMOGLOBIN 10.4 gm/dL (12.0-15.0); LYMPHOCYTES 13.2 % (24.0-44.0); MCH 27.7 pg (26.0-34.0); MCHC 32.2 g/dL (28.0-37.0); MCV 85.8 fL (80.0-100.0); MONOCYTES 8.3 % (1.0-8.0); PLATELET COUNT 348 thou/uL (150-400); POLYS 75.9 % (36.0-66.0); RBC 3.75 mil/uL (4.20-5.00); RDW 19.9 % (10.5-14.5); WBC 7.8 thou/uL (4.0-11.0)
[2019-02-01 21:38] LABS: ANION GAP 10 mmol/L (7-16); BUN 23 mg/dL (7-18); CALCIUM 9.5 mg/dL (8.5-10.1); CHLORIDE 101 mmol/L (98-107); CO2 26 mmol/L (21-32); CREATININE 1.3 mg/dL (0.6-1.0); GLUCOSE 129 mg/dL (74-106); POTASSIUM 3.9 mmol/L (3.5-5.1); SODIUM 137 mmol/L (136-145)
[2019-02-01 21:50] LABS: ALBUMIN 3.7 g/dL (3.4-5.0); SGOT 62 U/L (15-37); SGPT 50 U/L (30-65); TOTAL BILIRUBIN 0.5 mg/dL (<0.1-1.0); TOTAL PROTEIN 7.8 g/dL (6.4-8.2); TROPONIN-I <0.06 ng/mL (<0.06)
[2019-02-02 02:32] VITALS: BP 149/76
== END 2019-02-02 02:33 | disposition home or self-care (01) ==
LOC: ER 20:53
PROVIDERS: Student in an Organized Health Care Education/Training Program
DX: S80.11XA Contusion of right lower leg, initial encounter (principal); I10 Essential (primary) hypertension; E03.9 Hypothyroidism, unspecified; J44.9 Chronic obstructive pulmonary disease, unspecified; F41.9 Anxiety disorder, unspecified; F32.9 Major depressive disorder, single episode, unspecified; G89.29 Other chronic pain; M54.9 Dorsalgia, unspecified; Z90.710 Acquired absence of both cervix and uterus; Z88.8 Allergy status to other drugs, medicaments and biological substances; Z86.2 Personal history of diseases of the blood and blood-forming organs and certain disorders involving the immune mechanism; Z91.041 Radiographic dye allergy status; Z90.49 Acquired absence of other specified parts of digestive tract; X58.XXXA Exposure to other specified factors, initial encounter; Y93.89 Activity, other specified; Y92.89 Other specified places as the place of occurrence of the external cause; Y99.8 Other external cause status

== ENCOUNTER 2019-05-20 19:42 | Inpatient (IN) | payer OTHER ==
[~2019-05-20] VITALS: Ht 157.5 cm; Wt 85.3 kg
[~2019-05-20 19:42] MED LIST changes: +IBUPROFEN 800800 M1 PO; +LASIX 20 MG TAB20 MG PO; +SYNTHROID125 MC1 PO
[2019-05-20 19:47] VITALS: BP 152/68
[2019-05-20 20:55] LABS: ABSOLUTE NEUTROPHILS 5.9 thou/uL (1.4-8.2); BASOPHILS 1.3 % (0.0-2.0); EOSINOPHILS 1.4 % (0.0-3.0); HEMATOCRIT 25.6 % (37.0-47.0); HEMOGLOBIN 7.8 gm/dL (12.0-15.0); MCH 22.5 pg (26.0-34.0); MCHC 30.5 g/dL (28.0-37.0); MCV 73.7 fL (80.0-100.0); MONOCYTES 10.4 % (1.0-8.0); PLATELET COUNT 419 thou/uL (150-400); POLYS 77.9 % (36.0-66.0); RBC 3.48 mil/uL (4.20-5.00); RDW 19.1 % (10.5-14.5); WBC 7.6 thou/uL (4.0-11.0)
[2019-05-20 21:13] LABS: ANION GAP 10 mmol/L (7-16); BUN 17 mg/dL (7-18); CALCIUM 8.8 mg/dL (8.5-10.1); CHLORIDE 105 mmol/L (98-107); CO2 25 mmol/L (21-32); CREATININE 1.1 mg/dL (0.6-1.0); GLUCOSE 91 mg/dL (74-106); POTASSIUM 3.8 mmol/L (3.5-5.1); SODIUM 140 mmol/L (136-145)
[2019-05-20 21:17] LABS: DIRECT BILIRUBIN 0.2 mg/dL (<0.1-0.3); SGOT 46 U/L (15-37); SGPT 29 U/L (30-65); TOTAL BILIRUBIN 0.4 mg/dL (<0.1-1.0); TOTAL PROTEIN 7.1 g/dL (6.4-8.2); TROPONIN-I <0.06 ng/mL (<0.06)
[2019-05-20 23:03] VITALS: BP 149/57
[2019-05-20 23:14] VITALS: BP 153/74
[2019-05-20 23:30] VITALS: BP 165/80
[2019-05-21 04:46] VITALS: BP 165/83
[2019-05-21 05:58] LABS: HEMATOCRIT 24.8 % (37.0-47.0); HEMOGLOBIN 7.7 gm/dL (12.0-15.0); MCHC 30.9 g/dL (28.0-37.0); MCV 74.3 fL (80.0-100.0); RBC 3.34 mil/uL (4.20-5.00); RDW 18.7 % (10.5-14.5); WBC 8.5 thou/uL (4.0-11.0)
[2019-05-21 06:20] LABS: CALCIUM 8.8 mg/dL (8.5-10.1); CREATININE 1.1 mg/dL (0.6-1.0); POTASSIUM 4.6 mmol/L (3.5-5.1)
--- NOTE | 2019-05-21 06:39 | NUR ---
PT LATE ADMIT FROM ER. ADMISSION COMPLETED, CARE PLAN INITIATED, AND MED REC FINISHED. PT STATES SHE HAS CHRONIC CONSTIPATION AND ASKED FOR MIRALAX AND ORDER RECEIVED AND PT SATISFIED. CONSULT TO CARDIO WILL BE CALLED IN THIS AM. VSS, PT HAS A JUNCTIONAL RHYTHM ON TELE. PT X1 TO TOILET AND USES WHEELCHAIR WHEN OUT IN PUBLIC TO SHOP, ETC. HOURLY ROUNDING.
[2019-05-21 08:12] VITALS: BP 178/82
[2019-05-21 10:25] VITALS: BP 153/83; BP 164/75
[2019-05-21 11:32] VITALS: BP 150/76
--- NOTE | 2019-05-21 12:28 | NUR ---
INITIAL ASSESSMENT: Received consult. SW reviewed chart and spoke with nursing and attending physician. Pt was admitted from home due to CHF/Anemia. GI consulted. Pt to have an EGD tomorrow. Pt is receiving blood transfusion and IV iron today. SW met with pt at bedside. Introduced role of SW. Pt is alert/orientated x 4. Pt reports she lives at home. Her son is living with her currently. Prior to admission, pt was independent with ADLs. Pt does have a walker at home. Pt states there are multiple stairs in the home, as it is a split-level. Pt has not had HH in the past. Pt has been to [facility] for short-term rehab. Pt is currently on 1L of O2 and is not on O2 at home. Pt's PCP is Dr. Sue Navarro. Pt's goal is to return home when medically stable. SW is following to assist as needed with discharge planning.
[2019-05-21 13:55] VITALS: BP 153/83; BP 167/70; BP 172/65
--- NOTE | 2019-05-21 17:40 | NUR ---
ASSUMED CARE OF PT AT 0700. PT ALERT AND ORIENTED, IN MILD RESP DISTRESS WITH ANY ACTIVITY. 2 UNITS OF PRBC INFUSED PER ORDER. SYMPTOMS IMPROVING . HYPERTENISVE BUT STABLE - IMPROVING AFTER DOSE OF LASIX. VOIDING MANY TIMES IN BATHROOM. STOOL SAMPLE SUBMITTED - NEGATIVE FOR BLOOD. APPETITE OK. CALLS OUT APPROPRIATELY. NPO AFTER MN FOR EGD IN AM. PT PROGRESSING TOWARD POC GOALS.
[2019-05-21 19:04] VITALS: BP 161/87
[2019-05-21] MEDS ORDERED: ZOCOR20 MG PO (20:08)
[2019-05-22 03:28] VITALS: BP 135/62
[2019-05-22 05:41] LABS: HEMATOCRIT 28.6 % (37.0-47.0); HEMOGLOBIN 9.3 gm/dL (12.0-15.0); MCH 24.8 pg (26.0-34.0); MCHC 32.3 g/dL (28.0-37.0); MCV 76.8 fL (80.0-100.0); RBC 3.73 mil/uL (4.20-5.00); RDW 19.8 % (10.5-14.5); WBC 9.4 thou/uL (4.0-11.0)
[2019-05-22 05:42] LABS: CREATININE 1.1 mg/dL (0.6-1.0)
[2019-05-22 06:31] LABS: TSH 2.372 uIU/mL (0.358-3.740)
[2019-05-22 07:26] VITALS: BP 135/79
[2019-05-22 10:46] VITALS: BP 167/87
[2019-05-22 10:58] LABS: HEMATOCRIT 28.4 % (37.0-47.0); HEMOGLOBIN 9.2 gm/dL (12.0-15.0)
--- NOTE | 2019-05-22 14:17 | NUR ---
SW reviewed chart and spoke with nursing and attending physician. Pt had EGD earlier today. Plan for colonoscopy tomorrow. Discharge plan is for pt to return home when medically stable. SERGE is following to assist as needed with discharge planning.
[2019-05-22 16:35] VITALS: BP 144/74
--- NOTE | 2019-05-22 17:58 | NUR ---
END OF SHIFT NOTE. PT HAD EGD TODAY, PREPING FOR COLONOSCOPY IN AM. MD HAS NOT YET SPOKE TO PT SO PERMIT CANNOT BE SIGNED. VSS. VERY ANXIOUS. MULTIPLE COMPLAINTS OF HEAD ACHE, BACK ACHE, TROUBLE BREATHING. 02 SAT REMIANS > 95%. MEDICATED X 2 WITH OXYCODONE OF WHICH PT TAKES THIS AT HOME. TOLORATING PREP SO FAR.
[2019-05-22 19:02] VITALS: BP 123/65
[2019-05-23 03:35] VITALS: BP 144/60
[2019-05-23 05:35] LABS: HEMATOCRIT 30.4 % (37.0-47.0); HEMOGLOBIN 9.6 gm/dL (12.0-15.0); MCH 24.2 pg (26.0-34.0); MCHC 31.5 g/dL (28.0-37.0); MCV 76.8 fL (80.0-100.0); RBC 3.97 mil/uL (4.20-5.00); RDW 20.2 % (10.5-14.5); WBC 8.8 thou/uL (4.0-11.0)
--- NOTE | 2019-05-23 06:02 | P ---
[facility] [place] [address] PROCEDURE REPORT Name: LISA MCKEON Room #: 359-P [facility] IN M.R.#: [id number] Admission: 05/20/19 Attend Phys: Isaac Arroyo MD Discharge: Date of : 33 Report #: [id number] THIS REPORT FOR: //name// CC: Isaac Lindo MD DATE OF SERVICE: 05/22/2019 PROCEDURE: Diagnostic EGD. She is a patient of Dr. Sue Navarro and Dr. Isaac Arroyo. CHIEF COMPLAINT: History of recent melanotic stools, although currently she is not having melanotic stools. She has heme negative stool at this time. She has significant symptomatic iron deficiency anemia. The source of blood loss is not entirely clear from her history. Informed consent for this procedure was obtained after the risks of the procedure were explained. The risks include but are not limited to the following: bleeding, perforation, infection, complications of sedation and the possibility I could miss something. The patient has indicated her consent to proceed by signing. Anesthesia kindly provided deep sedation for this procedure. With the patient in the left lateral decubitus position under adequate sedation, the Olympus upper videoscope was introduced through the upper esophageal sphincter and advanced under direct visualization to the third portion of the duodenum. Findings are noted on withdrawal of the scope. There is no evidence of any acute bleeding in the upper GI tract at this time. The duodenal mucosa appeared normal throughout its entirety. Pylorus, mild erythema. Antrum, mild to moderate erythema. 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 Body, normal mucosa. Cardia and fundus, normal mucosa. Retroflex view did not reveal any hiatal hernia. The scope was withdrawn into the esophagus. The Z-line is appropriately located at the top of the gastric folds and appears normal. The esophageal mucosa appeared normal throughout its entirety. The scope was withdrawn. The patient went to the recovery area in stable condition. She tolerated the procedure well. IMPRESSION: 1. 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 This case of GAVE syndrome is mild and I do not think it would be adequate to produce melena, but it may produce iron [facility] [address] [place] [address] PROCEDURE REPORT Name: LISA MCKEON Room #: 359-P [facility] IN M.R.#: [id number] Admission: 05/20/19 Attend Phys: Isaac Arroyo MD Discharge: Date of : 33 Report #: [id number] deficiency anemia over a long period of time. 2. No blood in the upper GI tract. 3. Normal esophagus and duodenum to the third portion of the duodenum. RECOMMENDATIONS: My recommendations are for her to continue on her proton pump inhibitors. She should avoid nonsteroidal anti-inflammatory medications if at all possible. If we are to proceed with further workup in this very frail 83-year-old female, colonoscopy is going to be the next step. She is not a candidate for M2 capsule study at this time. Her stools are heme negative. I will request another stool for occult blood at this time. We need to replace her iron. Thank you very much once again for allowing me to participate in her care, Dr. Arroyo and Dr. Navarro. <ELECTRONICALLY SIGNED> By: Luna Sandra DO 05/23/19 0602 0943 1143 Luna Sandra DO /nt
--- NOTE | 2019-05-23 07:00 | NUR ---
PATIENT IS ALERT AND ORIENTED. PATIENT IS UP TIMES ONE AND A WALKER. PATIENT HAS BEEN NPO SENSE MIDNIGHT. FINISH BOWEL PREP AT 0200. PATIENTS STOOLS ARE CLEAR. PATIENT IS PENDING COLONOSCOPY. PATIENT IS AWAITING PROVIDER VISIT. PATIENT IS ON ROOM AIR. PATIENTS PAIN IS TREATED WITH MEDICATION. PATIENT HAS CHRONIC BACK PAIN. PATIENT IS RESTING COFMORTABLY IN BED. WCM. PATIENT IS PROGRESSING TO GOALS. PATIENT IS PENDING CT TODAY. HGB STABLE THIS AM.
[2019-05-23 07:39] VITALS: BP 157/82
[2019-05-23 12:58] VITALS: BP 166/86
--- NOTE | 2019-05-23 13:44 | EKG ---
[facility] [place] [address] [place] [address] ELECTROCARDIOGRAM REPORT Name: LISA MCKEON Room #: 359-P ADM IN M.R.#: [id number] Admission: 05/20/19 Attend Phys: Isaac Arroyo MD Discharge: Date of : 33 Report #: [id number] THIS REPORT FOR: //name// [facility] ED Test Date: 2019-05-20 Test Time: 20:04:29 Pat Name: LISA MCKEON Department: Room: 359 Gender: F Asphalt Machine Operator: AUBREY : 1935 Requested By: Yadira Niño Order Number: [id number] MD: Tylor Zhou Measurements Intervals [place] Rate: 68 P: VT: QRS: 194 QRSD: 101 T: 15 QT: 431 QTc: 459 Interpretive Statements Junctional rhythm Right axis deviation Poor R wave progression Compared to ECG 10/14/2018 08:55:39 Junctional rhythm now present Right-axis deviation now present Electronically Signed On 05-23-2019 13:44:26 CDT by Tylor Zhou [email or web address] <ELECTRONICALLY SIGNED> By: Tylor Zhou MD, [facility] 05/23/19 1344 03 03 Tylor Zhou MD, FAC /EPI
--- NOTE | 2019-05-23 14:52 | NUR ---
SW reviewed chart and spoke with nursing and attending physician. Pt had colonoscopy earlier today. PT/OT ordered today to evaluate pt for discharge needs. Plan is for pt to d/c home when medically stable. SW is following to assist as needed with discharge planning.
[2019-05-23 15:59] VITALS: BP 155/79
--- NOTE | 2019-05-23 16:38 | NUR ---
ASSUNED PATIWNT CARE AT 0700. A/O X4. TOLERATED COLONOSCOPY. PROGRESSING TOWARDS POC GOALS.
[2019-05-23 19:22] VITALS: BP 138/67
[2019-05-24 03:33] VITALS: BP 131/63
--- NOTE | 2019-05-24 04:19 | NUR ---
PATIENT IS ALERT AND ORIENTED. PATIENT IS UP TIMES ONE PATIENT IS ON ROOM AIR. CO OF SOA WITH ACTIVITY. NO SOA THIS SHIFT. PATIENT IS PENDING NEUROLOGY CONSULT. CT WAS NEG. PATIENT IS SINUS LINDA ON TELE. PATIENTS LBM WAS THE . PATIENT HAD COLONOSCOPY THE . PATIENT MAY BE PENDING POSSIBLE DC. WCM. PATIENT IS RESTING COMFORTABLY IN BED. PATIENT IS PROGRESSING TO GOALS.
[2019-05-24 05:14] LABS: HEMOGLOBIN 9.6 gm/dL (12.0-15.0); MCH 24.6 pg (26.0-34.0); MCHC 32.1 g/dL (28.0-37.0); MCV 76.7 fL (80.0-100.0); RBC 3.91 mil/uL (4.20-5.00); WBC 10.2 thou/uL (4.0-11.0)
[2019-05-24 05:18] LABS: CALCIUM 8.6 mg/dL (8.5-10.1); POTASSIUM 4.1 mmol/L (3.5-5.1)
[2019-05-24 07:22] VITALS: BP 147/93
[2019-05-24 13:58] VITALS: BP 126/49
[2019-05-24 14:03] VITALS: BP 104/57; BP 135/72
--- NOTE | 2019-05-24 15:29 | NUR ---
PATIENT IS ALERT ORIENTED X4. SHE IS PLEASANT WITH CARE. IV TO RIGHT HAND CAME OUT AND NEW IV INSERTED TO LEFT FOREARM. SHE TOLERATED WELL. SHE DENIES PAIN AT THIS TIME. STATES SHE GETS SOB WITH AMBULATION.
[2019-05-24 15:57] VITALS: BP 159/80
[2019-05-24 19:21] VITALS: BP 183/86
--- NOTE | 2019-05-25 03:46 | NUR ---
Slept intermittently during the night in between using the bathroom. O2 at 2L/NC and gets short of breath with exertion. HR in the 50's while asleep , asymptomatic. Scheduled diclofenac given for right shoulder discomfort. Bed alarm on for safety. Making progress towards care plan goals.
[2019-05-25 03:48] VITALS: BP 188/92
[2019-05-25 07:35] VITALS: BP 184/88
[2019-05-25 16:22] VITALS: BP 138/69
--- NOTE | 2019-05-25 17:53 | NUR ---
ASSUMED PATIENT CARE AT 0700. A/O X4. SOB WITH EXCERTION. BACK PAIN. SLOWLY TOWARDS POC GOALS.
[2019-05-25 20:09] VITALS: BP 150/70
[2019-05-26 03:51] VITALS: BP 183/85
--- NOTE | 2019-05-26 05:38 | NUR ---
PT ON O2 AT 1L PER NC. NO OBSERVABLE SOA OVERNIGHT. LUNGS CLEAR, DIMINISHED THROUGHOUT. NO OBSERVED COUGHING. NPO AT THIS TIME.
[2019-05-26 07:26] VITALS: BP 182/90
--- NOTE | 2019-05-26 07:46 | NUR ---
MANAGER FOOD DISCOVERED 13 CAPSULES AND 4 ROUND TABLETS UNDERNEATH PTS BED ON THE FLOOR. APPROACHED PT, SHE STATED THAT CAPSULES WERE GABAPENTIN. SHE DENIED TAKING ANY MEDICATIONS OTHER THAT WHAT SHE IS BEING PROVDIED BY THE HOSPITAL. DENIED HAVING ANY MEDICINE BOTTLES IN HER PURSE. "I'VE DUMPED MY PURSE OVER A COUPLE OF TIMES SINCE I'VE BEEN HERE. THOSE ARE PROBABLY JUST PILLS THAT FELL TO THE BOTTOM OF MY PURSE THEN FELL OUT WHEN MY PURSE FELL ON THE FLOOR." THOSE MEDS BAGGED, TAGGED WITH PT STICKER AND DROPPED OFF TO PHARMACIST.
--- NOTE | 2019-05-26 10:53 | NUR ---
SERGE reviewed chart and spoke with nursing. Pt currently off the unit having swallow eval. Recommendation made for pt to go to a SNF. Will need insurance authorization. SERGE will follow up with pt after swallow study. SERGE is following to assist as needed with discharge planning.
--- NOTE | 2019-05-26 13:38 | NUR ---
DISCHARGE PLANNING. PATIENT IS MEDICALLY READY FOR DISCHARGE. POST ACUTE RECOMMENDED AT DISCHARGE. REFERRAL FAXED TO [facility] FOR POST ACUTE NEEDS. CALL PLACED TO [facility], TO NOTIFY. SKYLER TO REVIEW REFERRAL AND CONTACT CM. FOLLOWING.
[2019-05-26 15:27] VITALS: BP 132/73
[2019-05-26 19:19] VITALS: BP 147/70
--- NOTE | 2019-05-26 19:27 | NUR ---
PT ORIGINALLY STATED SHE WANTED TO GO TO [facility] BUT THEN SHE AND DTR DECIDED THEY WOULD LIVE A FACILTY IN [place]...SWS WORKING ON INSURANCE AUTH..
--- NOTE | 2019-05-26 22:30 | NUR ---
BASKET BRAIDER WAS TAKING PT TO RESTROOM AND A ROUND OFF WHITE PILL WAS FOUND IN THE PT'S BED. IDENTIFIED PILL TYPE AND IT WAS AN OXYCODONE. CALLED DIRECTOR OF CONSUMER AFFAIRS AND PHARMACY. CHARGE NURSE INFORMED NOC NURSE THAT THE PREVIOUS EVENING 17 PILLS WERE DISCOVERED UNDER PTS BED. A VERGE FORM WAS PLACED MY Nagi HERNÁNDEZ. WAITING ON PHARMACY TO CALL BACK TO SEE IF THIS PILL IS FROM OUR FORMULARY AND IF IT WAS ONE OF THE 17 DISCOVERED THE PREVIOUS EVENING. WILL CONTINUE TO MONITOR.
[2019-05-27 04:08] VITALS: BP 185/79
[2019-05-27 05:48] LABS: HEMATOCRIT 30.9 % (37.0-47.0); HEMOGLOBIN 9.7 gm/dL (12.0-15.0); MCH 24.8 pg (26.0-34.0); MCHC 31.3 g/dL (28.0-37.0); MCV 79.2 fL (80.0-100.0); RBC 3.9 mil/uL (4.20-5.00); RDW 21.7 % (10.5-14.5); WBC 8.8 thou/uL (4.0-11.0)
[2019-05-27 06:04] LABS: CREATININE 0.9 mg/dL (0.6-1.0); POTASSIUM 4.3 mmol/L (3.5-5.1)
[2019-05-27 06:06] LABS: CALCIUM 9.1 mg/dL (8.5-10.1)
--- NOTE | 2019-05-27 06:07 | NUR ---
PT ADVANCING TOWARDS DC GOALS. PT CHIEF COMPLAINTS ARE CONSTIPATION AND POC WITH STOOL SOFTENERS IN PLACE. AT APPROX 2400 PT STATES SHE CANNOT SHALLOW AND WANTS A DRINK. EDUCATED PT ON SWALLOW STUDY AND IT WAS SINUS DRAINAGE DUE TO HER SEASONAL ALLERGIES. PT REQUESTED THROAT LOZENGE. PT UP TO BATHROOM WITH X1 ASSIST AND WALKER. PT STILL ON 2L VIA NC AND CONTINUOS PULSE OX. VSS AND AM LABS WERE REVIEWED. AWAITING PLACE FOR REHAB. HOURLY ROUNDING.
[2019-05-27 07:57] VITALS: BP 150/74
[2019-05-27 08:40] VITALS: BP 150/74
[2019-05-27] MEDS ORDERED: METOPROLOL SUCC25 M1 PO (09:31)
[2019-05-27] MEDS ORDERED: VOLTAREN GEL 1100 G1 TOP (12:29)
[2019-05-27] MEDS ORDERED: IPRAT-ALBUT 0.5-3 ML INH (12:29)
[2019-05-27] MEDS ORDERED: PERCOCET 10-321 EACH PO (12:29)
[2019-05-27] MEDS ORDERED: CLARITIN10 M2 PO (12:29)
--- NOTE | 2019-05-27 15:53 | NUR ---
PT HAS FELT BETTER TODAY...SHE IS SCHEDULED TO GO TO [facility] THIS AFTERNOON...
--- NOTE | 2019-05-28 08:36 | P ---
[facility] [place] [address] PROCEDURE REPORT Name: LISA MCKEON Room #: 359-P [facility] IN M.R.#: [id number] Admission: 05/20/19 Attend Phys: Isaac Arroyo MD Discharge: 05/27/19 Date of : 33 Report #: [id number] THIS REPORT FOR: //name// CC: Isaac Navarro DATE OF SERVICE: 05/23/2019 PROCEDURE PERFORMED: Colonoscopy with polypectomies. HISTORY OF PRESENT ILLNESS: The patient is an 83-year-old female who was admitted with shortness of breath. She has multiple medical problems had dark stools over the weekend, but now more recently has been normal. Stools are Hemoccult negative x 1. She was noted to have significant anemia on admission with hemoglobin of 7.8. She was transfused 1 unit of packed cells. Her hemoglobin improved from 7.8-9.6. Dr. Sandra, my partner, performed an upper endoscopy on the patient yesterday showing mild watermelon type changes of her stomach. No evidence of bleeding. Plan is for colonoscopy today. DESCRIPTION OF PROCEDURE: The risks and benefits of the procedure were explained to the patient, those risks including but not limited to bleeding, perforation, the risk of sedation. She understood these risks and gave informed consent. Sedation was given using propofol per Anesthesia. Next, a digital rectal exam showed a mild amount of stenosis in the anal canal, otherwise normal. Next, using a standard Olympus colonoscope, the scope was placed in the patient's anus and advanced under direct vision to the cecum. The overall prep was good. Cecum and ileocecal valve were normal in appearance. In the proximal ascending colon, there were 3 polyps; the two smaller polyps were 4 mm in size and both removed with cold forceps; the larger was 1.2 cm, partially pedunculated. This was removed by snare cautery. No evidence of bleeding after removal. I did place a single endoclip to help prevent bleeding in the near future while this was in the process of healing. There was no active bleeding from the polyp, but the tissue was somewhat friable, which could cause bleeding at times. The transverse and descending colon were normal. Multiple diverticula were noted in the sigmoid colon, no evidence of inflammation. The rectal mucosa was normal other than down at the distal rectum, again there appears to be old scarring, but no other abnormality noted. The scope was then withdrawn and the procedure terminated. The patient tolerated the procedure well. IMPRESSION: 1. Three colonic polyps as described above in the ascending colon. The largest one could potentially cause bleeding, but no evidence of active bleeding. 2. Sigmoid diverticulosis. 3. Chronic scarring in the distal rectum. [address] [address] PROCEDURE REPORT Name: LISA MCKEON Room #: 359-P DIS IN M.R.#: [id number] Admission: 05/20/19 Attend Phys: Isaac Arroyo MD Discharge: 05/27/19 Date of : 33 Report #: [id number] RECOMMENDATIONS: 1. Await biopsy results. 2. Would observe the patient at this point as the patient is heme negative x 1. Hemoglobin has been stable since transfusion. Thank you for allowing me to participate in her care. <ELECTRONICALLY SIGNED> By: Jorge Mcgowan MD 05/28/19 0836 1202 2139 Jorge Mcgowan MD /nt
--- NOTE | 2019-05-29 10:07 | PATH ---
[facility] [place] [address] [place] [address] PATHOLOGY RPT PROCEDURE Name: LISA OWEN Room #: 359-P DIS IN M.R.#: [id number] Admission: 05/20/19 Date of : 33 Discharge: 05/27/19 Report #: [id number] Path Case #: [id number] Accession Number: [id number] . 01 Material submitted: . colon - POLYP AT ASCENDING COLON X3. Modifiers: ascending . 01 Clinical history: . Preop DX: GI bleed Postop DX: Colon polyps, diverticulosis . 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 . (Please see comment) . (RIANNA:jcarlos; 05/27/2019) JAIME/05/27/2019 . 02 Comment: This case has also been reviewed by Dr. Angelita Brown who agrees with the diagnosis. . The findings in this case were relayed to Jovanny at Dr. Jorge Mcgowan's office on 05/27/19. (RIANNA:jcarlos; 05/27/2019) . 02 Addendum: . The tumor present in the ascending colon polyp has been re-reviewed at Dr. Mcgowan's request. Dr. Mcgowan indicated that this was a polypoid lesion and he was interested to see if the tumor was present at the margin of the specimen. . The adenocarcinoma with mucinous features is not seen at the base margin of the polyp; however, it focally comes to within 1 mm away from the base margin of the polyp. . These updated findings were discussed with Dr. Mcgowan on 05/28/2019. (RIANNA:shikha; 05/28/2019) . Professional services performed by [facility] at [facility], [address] [place] [address], [place] [address]. Technical [facility] performed by [facility] at [address] [place] [address], [address], [place] [address]. MBR/05/28/2019 Addendum Electronically Signed by Anrie Champion MD, Pathologist [address] [address] PATHOLOGY RPT PROCEDURE Name: LISA OWEN Room #: 359-P DIS IN M.R.#: [id number] Admission: 05/20/19 Date of : 33 Discharge: 05/27/19 Report #: [id number] Path Case #: [id number] . 02 Electronically signed: . Arnie Champion MD, Pathologist NPI- [id number] . 01 Gross description: . Received in formalin labeled "Lisa Owen, polyp at ascending colon x3," is a polypoid segment of north-brown soft tissue measuring 1.3 x 1.0 x 0.7 cm in greatest dimensions admixed with a 0.5 x 0.3 x 0.1 cm aggregate of smaller north soft tissue fragments. The largest segment is inked, serially sectioned and submitted entirely in cassette A1. The remaining tissue is filtered and submitted entirely in cassette A2. ([facility]; 05/26/2019) XDC/XDC . 02 Pathologist provided ICD-10: C18.2 . 02 CPT . 452249 Specimen Comment: A courtesy copy of this report has been sent to Specimen Comment: [phone], , . Specimen Comment: Report sent to ,DR ZUÑIGA / DR MARQUEZ Performed at: [address], [place] [id number] MD Dmitriy العلي MD Phone: [phone] Performed at: [address] [id number] MD Nuria Zhou MD Phone: [phone]
== END 2019-05-27 16:42 | DRG 811 ==
LOC: ER 19:42 → 3W 22:54 → EROBS 22:54 → 3W 23:21
PROVIDERS: Emergency Medicine; Internal Medicine; Internal Medicine Gastroenterology; Nurse Practitioner; Nurse Practitioner Family; ADMIT Hospitalist
PROC: 30233N1 Transfusion of Nonautologous Red Blood Cells into Peripheral Vein, Percutaneous Approach (ICD-10-PCS; principal; 2019-05-21)
PROC: 0DJ08ZZ Inspection of Upper Intestinal Tract, Via Natural or Artificial Opening Endoscopic (ICD-10-PCS; 2019-05-22)
PROC: 0DBK8ZZ Excision of Ascending Colon, Via Natural or Artificial Opening Endoscopic (ICD-10-PCS; 2019-05-23)
DX: D62 Acute posthemorrhagic anemia (principal); I50.43 Acute on chronic combined systolic (congestive) and diastolic (congestive) heart failure; K31.819 Angiodysplasia of stomach and duodenum without bleeding; K57.30 Diverticulosis of large intestine without perforation or abscess without bleeding; J44.9 Chronic obstructive pulmonary disease, unspecified; E03.9 Hypothyroidism, unspecified; Z96.653 Presence of artificial knee joint, bilateral; G89.29 Other chronic pain; M54.9 Dorsalgia, unspecified; F32.9 Major depressive disorder, single episode, unspecified; G47.00 Insomnia, unspecified; I25.10 Atherosclerotic heart disease of native coronary artery without angina pectoris; E78.5 Hyperlipidemia, unspecified; I48.0 Paroxysmal atrial fibrillation; D63.8 Anemia in other chronic diseases classified elsewhere; Z60.2 Problems related to living alone; M25.511 Pain in right shoulder; K59.00 Constipation, unspecified; I11.0 Hypertensive heart disease with heart failure; M54.5 Low back pain; Z90.710 Acquired absence of both cervix and uterus; Z88.8 Allergy status to other drugs, medicaments and biological substances; Z91.041 Radiographic dye allergy status; Z90.49 Acquired absence of other specified parts of digestive tract; Z95.5 Presence of coronary angioplasty implant and graft; Z82.49 Family history of ischemic heart disease and other diseases of the circulatory system; Z80.0 Family history of malignant neoplasm of digestive organs; Z79.899 Other long term (current) drug therapy
CPT/HCPCS: 10879; 62110; 62900; 70005

== ENCOUNTER → 2019-07-18 | Outpatient (CLI) | payer OTHER ==
[~2019-07-18] MED LIST changes: +CLARITIN10 M2 PO; +IPRAT-ALBUT 0.5-3 ML INH; +VOLTAREN GEL 1100 G1 TOP; +ZOCOR20 MG PO
[2019-07-18 13:31] VITALS: BP 124/59
--- NOTE | 2019-07-21 12:05 | LINQ ---
[facility] [address] [place] [address] [employer] PROCEDURE REPORT Name: LINDALISA Shelly Room #: REG JOSE ANTONIO Conklin#: [id number] Admission: 07/18/19 Attend Phys: Tuan York Discharge: Date of : 33 Report #: [id number] THIS REPORT FOR: //name// APPROVED REPORT Study performed: 07/18/2019 15:47:21 Patient Status: Out-Patient Room #: Event Personnel: Tuan Lindo MD Exam: Loop Recorder Implant Indications: Syncope The patient is a 83 year-old male with a history of syncope, and palpitations. Implanted Devices: [employer]: CONFIRM Rx; Reference #[id number]; SN: [id number]; Use before: 2020-10-11 Procedure The patient underwent informed consent. We discussed the details of the procedure including the risks, which include, but not limited to bleeding, infection, vascular damage, cardiac perforation, and pneumothorax. After informed consent was obtained the patient was brought to the cardiac catheterization laboratory prep and hold. The left chest was prepped and draped in usual sterile manner. Using 1% lidocaine the proposed incision site was instilled. Subcutaneously a tract was also anesthetized with the same 1% lidocaine. Utilizing an 11 blade a small incision was made horizontally in the para sternal region. Utilizing both blunt and sharp dissection a tract was developed. The device was then inserted utilizing the insertion tool. Subcutaneous tissue was closed with 2 simple interrupted 30 sutures and the skin was closed with a running subcuticular utilizing 3-0 Vicryl. Steri-Strips 4 x 4 OpSite were placed. Patient tolerated procedure well there were no complications Complications The patient tolerated the procedure well and there were no complications associated with the procedure. Conclusion 1. Successful insertion of a [employer] implantable loop recorder [facility] [place] [address] [employer] PROCEDURE REPORT Name: LISA MCKEON [facility]: [facility] [id number] Admission: 07/18/19 Attend Phys: Tuan York Discharge: Date of : 33 Report #: [id number] Recommendations 1. Routine post-insertion protocol <ELECTRONICALLY SIGNED> By: Tuan Lindo MD 07/21/19 1205 04 04 Tuan Lindo MD /INF
== END | disposition home or self-care (01) ==
LOC: CATH 11:42
DX: R55 Syncope and collapse (principal); R00.2 Palpitations; I48.91 Unspecified atrial fibrillation; Z91.041 Radiographic dye allergy status; Z98.890 Other specified postprocedural states; Z79.899 Other long term (current) drug therapy; Z87.01 Personal history of pneumonia (recurrent); Z79.01 Long term (current) use of anticoagulants; Z87.440 Personal history of urinary (tract) infections; Z79.891 Long term (current) use of opiate analgesic

== ENCOUNTER → 2019-07-21 | Outpatient (CLI) | payer OTHER | LOC: CAT 08:59 | DX: K44.9 Diaphragmatic hernia without obstruction or gangrene (principal); K57.30 Diverticulosis of large intestine without perforation or abscess without bleeding; J98.4 Other disorders of lung; N20.0 Calculus of kidney; I70.0 Atherosclerosis of aorta; M47.816 Spondylosis without myelopathy or radiculopathy, lumbar region; M41.85 Other forms of scoliosis, thoracolumbar region; M48.061 Spinal stenosis, lumbar region without neurogenic claudication; K86.89 Other specified diseases of pancreas; Z90.49 Acquired absence of other specified parts of digestive tract; Z90.710 Acquired absence of both cervix and uterus; Z85.038 Personal history of other malignant neoplasm of large intestine ==

== ENCOUNTER → 2019-08-27 | Outpatient (CLI) | payer OTHER ==
[~2019-08-27] VITALS: Ht 157.5 cm; Wt 70.3 kg
[~2019-08-27] MED LIST changes: +CARVEDILOL3.125 MG PO; +COLACE 100 MG100 MG PO; +FIBER SMOOTH PO; +KLOR-CON M2020 MEQ PO; +LASIX 40 MG TAB40 MG PO; +LEVOXYL137 MCG PO; +NEURONTIN100 MG PO; +PERCOCET 10-321 EAC1 PO; +SODIUM CHLORIDE1 GM PO; +VOLTAREN GEL 1100 G2 TOP; +ZOFRAN4 MG PO
--- NOTE | 2019-08-27 12:13 | P ---
[facility] [place] [address] PROCEDURE REPORT Name: LISA MCKEON [facility] [id number] Admission: 08/27/19 Attend Phys: Jorge Scruggs Discharge: Date of : 33 Report #: [id number] THIS REPORT FOR: //name// CC: Jorge Navarro MD DATE OF SERVICE: 08/27/2019 PROCEDURE PERFORMED: Colonoscopy with polypectomy. HISTORY OF PRESENT ILLNESS: The patient is an 83-year-old female who underwent a colonoscopy by myself on 05/23/2019 for further evaluation of anemia. There were 3 polyps in the ascending colon that were noted, two smaller polyps were removed by cold forceps, the larger by snare cautery, the larger polyp had invasive moderately differentiated adenocarcinoma with mucinous features. The tumor was close to the margin, but was not involving the margin at 1 mm. I had a long discussion with the patient and her family regarding options including possible surgery, which would have required a right hemicolectomy or repeating colonoscopy and reevaluating the site. At this time, the patient agreed with a repeat colonoscopy. She does have a history of anemia; however, this has improved. The patient also had unfortunately after the polypectomy, a post-polypectomy bleed and was admitted at a different hospital requiring endoclip placement. DESCRIPTION OF PROCEDURE: The risks and benefits of the procedure were explained to the patient, those risks including but not limited to bleeding, perforation and the risk of sedation. She understood these risks and gave informed consent. Sedation was given using propofol per anesthesia. Next, a digital rectal exam was initially performed, which was normal. Next, using a standard Olympus colonoscope, the scope was placed in the patient's anus and advanced under direct vision to the cecum. The overall prep was good. The cecum and ileocecal valve were normal in appearance. In the proximal ascending colon, an endoclip was noted. No obvious polyp tissue was seen. I did obtain biopsies near the base of where the endoclip was located. This may be the previous polypectomy site or could be where previous polyp was biopsied as well. Another polyp was noted in the ascending colon. This may be again previous polypectomy site. This appears to be benign. It was approximately 5-6 mm in size. I did remove this by snare cautery as well. Otherwise, no other abnormalities were noted in the ascending colon. The transverse and descending colon were normal. Multiple diverticula were noted in the sigmoid colon, no evidence of inflammation. The rectal mucosa was normal. On retroflexion, no abnormalities were noted. The scope was then withdrawn and the procedure terminated. The patient tolerated the procedure well. IMPRESSION: [address] [address] PROCEDURE REPORT Name: LISA MCKEON Room #: REG NELI Conklin#: [id number] Admission: 08/27/19 Attend Phys: Jorge Scruggs Discharge: Date of : 33 Report #: [id number] 1. Endoclip at previous polypectomy site in the proximal ascending colon. Biopsies obtained. 2. Small polyp also noted in the ascending colon, removed by snare cautery. 3. Sigmoid diverticulosis. RECOMMENDATIONS: We will await biopsy results. Thank you for allowing me to participate in her care. <ELECTRONICALLY SIGNED> By: Jorge Mcgowan MD 08/27/19 1213 1047 1112 Jorge Mcgowan MD /nt
--- NOTE | 2019-08-27 12:13 | P ---
[facility] [address] PROCEDURE REPORT Name: LISA MCKEON [id number] Admission: 08/27/19 Attend Phys: Jorge Scruggs Discharge: Date of : 31 Report #: [id number] THIS REPORT FOR: //name// CC: Jorge Navarro MD DATE OF SERVICE: 08/27/2019 PROCEDURE PERFORMED: Upper endoscopy with biopsies and esophageal dilation. HISTORY OF PRESENT ILLNESS: The patient is an 83-year-old female who has undergone an EGD and colonoscopy in 05/[address] during [address] anemia[address] Sandra, my partner performed an EGD on 05/22/2019, which showed gastritis, possibly gave of the stomach, otherwise it was negative. I then proceeded with a colonoscopy on 05/23/2019 and 3 polyps were removed in the ascending colon, one of which the larger was partially pedunculated and removed by snare cautery. 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 The tumor did not involve the base, but came within 1 mm. I had a long discussion with the patient and her family about options, the plan was to repeat colonoscopy at this time to further evaluate the previous polypectomy site. DESCRIPTION OF PROCEDURE: The risks and benefits of the procedure were explained to the patient, those risks including but not limited to bleeding, perforation and the risk of sedation. She understood these risks and gave informed consent. Sedation was given using propofol per Anesthesia. Next, using a standard Olympus upper endoscope, the scope was placed in the patient's mouth and advanced under direct vision through the esophagus, stomach and into the second portion of the duodenum. The larynx was normal in appearance. The esophagus was normal throughout. The GE junction was normal. No evidence of esophagitis or stricture. Upon entering the stomach, a small hiatal hernia was noted. There was a mild gastritis noted in the body and the antrum. Biopsies were obtained. No evidence of ulcerations or erosions. No bleeding was noted. The pylorus was normal and patent. The duodenal bulb and first and second portion were all normal. The scope was then brought back up into the patient's stomach and a Savary guidewire was inserted through the scope, leaving the guidewire in place as the scope was then withdrawn. Next, a 51-Bulgarian Savary dilation of the esophagus was then performed without difficulty. The wire and dilator removed. The scope was reintroduced into the patient's stomach. There was no evidence of mucosal tear after dilation. The scope was then withdrawn and the procedure terminated. The patient tolerated the procedure well. IMPRESSION: 1. Small hiatal hernia. 2. Mild gastritis. [address] [address] PROCEDURE REPORT Name: LISA MCKEON Room #: REG CLI Rubin#: [id number] Admission: 08/27/19 Attend Phys: Jorge Scruggs Discharge: Date of : 31 Report #: [id number] 3. Otherwise, normal upper endoscopy. RECOMMENDATIONS: 1. Await biopsy results. 2. Observe the patient post-dilation. 3. We will proceed with colonoscopy next today. Thank you for allowing me to participate in her care. <ELECTRONICALLY SIGNED> By: Jorge Mcgowan MD 08/27/19 1213 1043 [id number] Jorge Mcgowan MD /nt
--- NOTE | 2019-09-01 14:06 | PATH ---
[facility] [place] [address] PATHOLOGY RPT PROCEDURE Name: LINDALISA Bravo Room #: REG [facility] ME[facility].#: [id number] Admission: 08/27/19 Date of : 31 Discharge: Report #: [id number] Path Case #: [id number] [facility] Accession Number: [id number] . 01 Material submitted: . PART A: stomach - BIOPSY OF GASTRITIS PART B: colon - BIOPSY OF PREVIOUS POLYPECTOMY SITE PART C: colon - POLYP AT ASCENDING COLON. Modifiers: ascending . 01 Clinical history: . Dysphagia, history of colon cancer . 02 Diagnosis: A. Stomach, biopsy: - Chronic superficial gastritis, mild, with focal acute activity. - No evidence of Helicobacter pylori on immunoperoxidase stain. . B. Colon, "previous polypectomy site", biopsy: - Fragments of colonic mucosa with focal adenomatous change and focal superficial ulceration. . C. Colon, descending, biopsy: - Adenomatous polyps, 3. - Hyperplastic polyp, 1. (RIANNA/valerie; 09/01/2019) LBQ 09/01/2019 1014 Local . 02 Electronically signed: . Arnie Champion MD, Pathologist NPI- [id number] . 01 Gross description: . A. The specimen is received in formalin, labeled "Lisa Owen, biopsy of gastritis". Received are four segments of pale north soft tissue ranging in size from 0.3 to 0.7 cm in maximum dimensions. The specimen is submitted entirely in cassette A1. . B. The specimen is received in formalin, labeled "Lisa Owen, biopsy of previous polypectomy site". Received are three segments of pale north soft tissue ranging in size from 0.3 to 0.5 cm in maximum dimensions. The specimen is submitted entirely in cassette B1. . C. The specimen is received in formalin, labeled "Lisa Owen, polyp at ascending colon". Received are four segments of pale north soft tissue ranging in size from 0.2 to 0.6 cm in maximum dimensions. The surgical margin of the larger segment is inked and the segment is bisected. The specimen is submitted entirely in cassette C1. [address] [address] PATHOLOGY RPT PROCEDURE Name: LISA OWEN Room #: REG CLI Rubin#: [id number] Admission: 08/27/19 Date of : 31 Discharge: Report #: [id number] Path Case #: [id number] (CAA; 08/29/2019) QAC/QAC 09/01/2019 1011 Local . 02 Pathologist provided ICD-10: K29.30, K63.3, D12.4, K63.5 . 02 CPT . 187457, 143659, 936302, L47658 Specimen Comment: A courtesy copy of this report has been sent to [phone], [phone] Specimen Comment: [phone] Specimen Comment: Report sent to / DR ZUÑIGA Performed at: 01 [facility] [address] [place] [address], [place] [id number] MD Dmitriy العلي MD Phone: [phone] Performed at: [address] [id number] MD Nuria Zhou MD Phone: [phone]
== END | disposition home or self-care (01) ==
LOC: GI 08:07
DX: Z08 Encounter for follow-up examination after completed treatment for malignant neoplasm (principal); D12.4 Benign neoplasm of descending colon; K29.30 Chronic superficial gastritis without bleeding; K63.3 Ulcer of intestine; K57.30 Diverticulosis of large intestine without perforation or abscess without bleeding; K29.70 Gastritis, unspecified, without bleeding; K44.9 Diaphragmatic hernia without obstruction or gangrene; R13.19 Other dysphagia; K21.9 Gastro-esophageal reflux disease without esophagitis; I11.0 Hypertensive heart disease with heart failure; I50.9 Heart failure, unspecified; I25.2 Old myocardial infarction; E78.5 Hyperlipidemia, unspecified; I48.0 Paroxysmal atrial fibrillation; Z86.2 Personal history of diseases of the blood and blood-forming organs and certain disorders involving the immune mechanism; Z85.09 Personal history of malignant neoplasm of other digestive organs; Z79.899 Other long term (current) drug therapy; Z98.890 Other specified postprocedural states; Z90.49 Acquired absence of other specified parts of digestive tract; Z90.710 Acquired absence of both cervix and uterus; Z96.653 Presence of artificial knee joint, bilateral; Z98.41 Cataract extraction status, right eye; Z98.42 Cataract extraction status, left eye; Z91.041 Radiographic dye allergy status; Z79.01 Long term (current) use of anticoagulants
CPT/HCPCS: 62110; 62900

== ENCOUNTER → 2020-03-02 | Outpatient (CLI) | payer BC | LOC: SJCVC 13:58 | PROVIDERS: ATTEND Internal Medicine | DX: I44.4 Left anterior fascicular block (principal); R94.31 Abnormal electrocardiogram [ECG] [EKG]; I48.0 Paroxysmal atrial fibrillation; J20.9 Acute bronchitis, unspecified; I10 Essential (primary) hypertension; E78.5 Hyperlipidemia, unspecified; Z90.710 Acquired absence of both cervix and uterus; Z79.899 Other long term (current) drug therapy ==

== ENCOUNTER → 2020-11-29 | Outpatient (CLI) | payer OTHER ==
[2020-11-29 13:20] LABS: ABSOLUTE NEUTROPHILS 4.7 thou/uL (1.4-8.2); BASOPHILS 0.8 % (0.0-2.0); EOSINOPHILS 1.6 % (0.0-3.0); HEMATOCRIT 39.6 % (37.0-47.0); HEMOGLOBIN 12.5 gm/dL (12.0-15.0); LYMPHOCYTES 10.6 % (24.0-44.0); MCH 32.4 pg (26.0-34.0); MCHC 31.5 g/dL (28.0-37.0); MCV 102.8 fL (80.0-100.0); MONOCYTES 13.9 % (1.0-8.0); PLATELET COUNT 219 thou/uL (150-400); POLYS 73.1 % (36.0-66.0); RBC 3.86 mil/uL (4.20-5.00); RDW 16.3 % (10.5-14.5); WBC 6.4 thou/uL (4.0-11.0)
[2020-11-29 13:28] LABS: APTT 27.7 Seconds (24.5-32.8); INR 1.3; PROTIME 13.7 Seconds (9.3-11.4)
[2020-11-29 13:30] LABS: CALCIUM 8.2 mg/dL (8.5-10.1); CREATININE 1.4 mg/dL (0.6-1.0); POTASSIUM 3.7 mmol/L (3.5-5.1)
[2020-11-29 15:04] LABS: CLARITY SLIGHTLY CLOUDY; COLOR YELLOW; SOURCE RIGHT CHEST; TOTAL VOLUME 60 mL
[2020-11-29 15:40] LABS: BF NUCLEATED CELLS 184 /mm3; BF RBC 1415 /mm3
[2020-11-29 16:24] LABS: BF MACROPHAGE 20 %; BF NEUTROPHILS 46 %
[2020-11-30 09:22] LABS: SOURCE CHEST
[2020-11-30 16:07] LABS: BODY FLUID AMYLASE 12 U/L (()); BODY FLUID GLUCOSE 102 mg/dL (()); BODY FLUID LDH 130 IU/L (()); BODY FLUID PROTEIN 2.9 g/dL (())
--- NOTE | 2020-12-01 16:06 | PATH ---
[facility] [address] [place] [address] PATHOLOGY RPT PROCEDURE Name: LISA MCKEON Room #: REG [facility].#: [id number] Admission: 11/29/20 Date of : 31 Discharge: Report #: [id number] Path Case #: [id number] Note [facility] Accession Number: [id number] TESTS RESULT FLAG UNITS REF RANGE LAB Clinician Provided Cytology Information No. of containers..01 Other (Miscellaneous) Source: RT PLEURAL DIAGNOSIS: RT PLEURAL NEGATIVE FOR MALIGNANT CELLS. REACTIVE MESOTHELIAL CELLS ARE PRESENT. THIS INTERPRETATION INCLUDES EVALUATION OF A CELL BLOCK. Signed out by: 02 Leopoldo Senior MD, Pathologist NPI- [id number] Performed by: 01 Natalie Travis, Financial Agent ([facility]) Gross description: 01 25ML, YELLOW, 1TP1CB /LCS 11/30/2020 0736 Local FLAG LEGEND: L-Low Normal,H-High Normal,LL-Alert Low,HH-Alert High <-Panic Low,>-Panic High,A-Abnormal,AA-Critical Abnormal Performed at: [address] [place] [address] Robert Davis MD, [address] [place] [id number] Leopoldo Senior MD, Specimen Comment: Report sent to Performed at: [address], [place], [place] [id number] MD Robert Davis MD Phone: [phone]
== END | disposition home or self-care (01) ==
LOC: ULTRA 11:46
PROVIDERS: ATTEND Internal Medicine
DX: J90 Pleural effusion, not elsewhere classified (principal); I48.91 Unspecified atrial fibrillation; Z98.890 Other specified postprocedural states; Z79.899 Other long term (current) drug therapy; Z91.041 Radiographic dye allergy status; Z79.01 Long term (current) use of anticoagulants

== ENCOUNTER → 2020-12-15 | Outpatient (CLI) | payer OTHER | LOC: SJCVCIMAG 13:31 | PROVIDERS: ATTEND Internal Medicine | DX: I08.8 Other rheumatic multiple valve diseases (principal); I48.91 Unspecified atrial fibrillation; I10 Essential (primary) hypertension; R06.00 Dyspnea, unspecified ==

== ENCOUNTER → 2020-12-20 | Outpatient (CLI) | payer OTHER | LOC: RAD 13:20 | PROVIDERS: ATTEND Internal Medicine | DX: J90 Pleural effusion, not elsewhere classified (principal); J98.11 Atelectasis; I51.7 Cardiomegaly; I87.8 Other specified disorders of veins; I70.0 Atherosclerosis of aorta; Z88.8 Allergy status to other drugs, medicaments and biological substances ==

== ENCOUNTER → 2021-03-21 | Outpatient (CLI) | payer OTHER | LOC: RAD 13:44 | PROVIDERS: ATTEND Internal Medicine | DX: J90 Pleural effusion, not elsewhere classified (principal); J98.4 Other disorders of lung ==

== ENCOUNTER → 2021-07-20 | Outpatient (CLI) | payer OTHER | LOC: RAD 13:34 | PROVIDERS: ATTEND Internal Medicine | DX: R06.00 Dyspnea, unspecified (principal) ==

== ENCOUNTER → 2021-10-26 | Outpatient (CLI) | payer OTHER | LOC: RAD 09:52 | PROVIDERS: ATTEND Internal Medicine | DX: J98.4 Other disorders of lung (principal); I51.7 Cardiomegaly; I70.0 Atherosclerosis of aorta ==

== ENCOUNTER → 2021-11-09 | Outpatient (CLI) | payer OTHER ==
[~2021-11-09] VITALS: Ht 157.5 cm; Wt 63.5 kg
[~2021-11-09] MED LIST changes: +ALLEGRA ALLERG180 MG PO; +CALCIUM500 MG PO; +FLONASE 0.05%50 MCG NARES; +NITROSTAT0.4 M1 SL; +SPIRONOLACTONE25 M1 PO; +TORSEMIDE20 MG PO; +TYLENOL325 M1 PO; +VITAMIN D325 MC3 PO; +XTAMPZA ER9 MG PO
[2021-11-09 13:06] VITALS: BP 149/73
--- NOTE | 2021-11-09 13:43 | NUR ---
Pain Clinic Assessment: 1. History of Osteoarthritis: History of Rheumatoid Arthritis: 2. Height: 5 ft. 2 in. 157.5 cm. Weight: 140.0 lb. oz. 63.504 kg. Patient's BMI: 25.6 3. Vital Signs: BP: 149/73 Pulse: 73 Resp: 16 Temp: 02 Sat: 97 ECG Mon: 4. Pain Intensity: 10 5. Fall Risk: Dizziness: N Needs help standing or walking: Y Fallen in the last 3 months: N Fall risk comments: 6. Patient on Blood Thinner: ELIQUIS 5 MG 7. History of Hypertension: Y 8. Opioid Therapy greater than 6 weeks: Opiate Contract Signed: 9. Risk Assessment Tool Provided: 0-3 LOW RISK 10. Functional Assessment Tool: 11. Recreational Drug Use: Never Drug Type: Tobacco Use: Never Smoker Tobacco Type: Amount or Packs/day: How Many Years: Alcohol Use: No Frequency: Quant:
== END ==
LOC: PAIN 10:05
PROVIDERS: ATTEND Anesthesiology Pain Medicine
DX: G89.29 Other chronic pain (principal); M54.50 Low back pain, unspecified; I48.91 Unspecified atrial fibrillation; I50.9 Heart failure, unspecified; E07.9 Disorder of thyroid, unspecified; M81.0 Age-related osteoporosis without current pathological fracture; I34.0 Nonrheumatic mitral (valve) insufficiency